=== PATIENT | female | born 1985 | race Caucasian/White ===

== ENCOUNTER 2016-06-14 10:02 | Emergency (ER) | payer MEDICAID ==
[~2016-06-14] VITALS: Ht 160 cm; Wt 75.7 kg
[~2016-06-14 10:02] MED LIST: CLARITHROMYCIN250 MG; COLACE100 MG PO; FLAGYL250 MG; OMEPRAZOLE DR20 M1
[2016-06-14 13:32] VITALS: BP 115/74
== END 2016-06-14 13:33 | disposition home or self-care (01) ==
LOC: ED 10:02
DX: M25.512 Pain in left shoulder (principal)

== ENCOUNTER 2016-07-09 15:50 | Emergency (ER) | payer MEDICAID ==
[2016-07-09 18:44] VITALS: BP 119/74
== END 2016-07-09 18:44 | disposition home or self-care (01) ==
LOC: ED 15:50
DX: R10.13 Epigastric pain (principal); R19.7 Diarrhea, unspecified
CPT/HCPCS: J1885; J2270; Q0162

== ENCOUNTER 2016-08-04 20:51 | Emergency (ER) | payer MEDICAID ==
[2016-08-04 23:07] LABS: BASOPHIL % 0.3 % (0-2); PLATELET COUNT 210 x10^3mcL (130-400); RED CELL DISTRIBUTION WIDTH 14.1 % (11.5-14.5)
[2016-08-04 23:22] LABS: CALCIUM 9.3 mg/dL (8.5-10.1); CARBON DIOXIDE 24.6 mmol/L (21-32); CHLORIDE SERUM 106 mmol/L (98-107); CREATININE SERUM 0.6 mg/dL (0.6-1.0); GFR1 > 60 mL/min; GLUCOSE SERUM 93 mg/dL (74-106); POTASSIUM SERUM 3.8 mmol/L (3.5-5.1); SODIUM SERUM 142 mmol/L (136-145)
[2016-08-04 23:38] LABS: ALBUMIN 3.6 g/dL (3.4-5.0); ALKALINE PHOSPHATASE 64 U/L (46-116); ALT/SGPT 23 U/L (14-59); AST/SGOT 16 U/L (15-37); BILIRUBIN TOTAL 0.2 mg/dL (0.20-1.00); TOTAL PROTEIN, SERUM 7.5 g/dL (6.4-8.2)
[2016-08-05 01:38] VITALS: BP 111/61
== END 2016-08-05 01:39 | disposition home or self-care (01) ==
LOC: ED 20:51
PROVIDERS: Emergency Medicine
DX: M79.651 Pain in right thigh (principal)
CPT/HCPCS: Q0092

== ENCOUNTER 2016-12-16 23:17 | Emergency (ER) | payer MEDICAID ==
[2016-12-17 00:25] LABS: microscopic required? NO
[2016-12-17 00:43] LABS: urine erythrocyte NEGATIVE (NEGATIVE)
[2016-12-17 00:53] LABS: BASOPHIL % 0.4 % (0-2); PLATELET COUNT 302 x10^3mcL (130-400); RED CELL DISTRIBUTION WIDTH 14.3 % (11.5-14.5)
[2016-12-17 01:22] LABS: CARBON DIOXIDE 27.9 mmol/L (21-32); CHLORIDE SERUM 103 mmol/L (98-107); CREATININE SERUM 0.5 mg/dL (0.6-1.0); GFR1 > 60 mL/min; GLUCOSE SERUM 102 mg/dL (74-106); POTASSIUM SERUM 3.8 mmol/L (3.5-5.1); SODIUM SERUM 137 mmol/L (136-145)
[2016-12-17 01:25] VITALS: BP 125/83
[2016-12-17 01:27] LABS: ALBUMIN 3.4 g/dL (3.4-5.0); ALKALINE PHOSPHATASE 70 U/L (46-116); ALT/SGPT 33 U/L (14-59); AST/SGOT 23 U/L (15-37); BILIRUBIN TOTAL 0.21 mg/dL (0.20-1.00); TOTAL PROTEIN, SERUM 7.8 g/dL (6.4-8.2)
== END 2016-12-17 01:25 | disposition home or self-care (01) ==
LOC: ED 23:17
PROVIDERS: Emergency Medicine
DX: M54.9 Dorsalgia, unspecified (principal); F50.89 Other specified eating disorder; D64.9 Anemia, unspecified; R10.9 Unspecified abdominal pain
CPT/HCPCS: 36415

== ENCOUNTER 2017-04-09 01:13 | Emergency (ER) | payer MEDICAID ==
[2017-04-09 04:00] LABS: CALCIUM 8.1 mg/dL (8.5-10.1); CHLORIDE SERUM 106 mmol/L (98-107); CREATININE SERUM 0.6 mg/dL (0.6-1.0); GFR1 > 60 mL/min; GLUCOSE SERUM 108 mg/dL (74-106); POTASSIUM SERUM 3.8 mmol/L (3.5-5.1); SODIUM SERUM 141 mmol/L (136-145)
[2017-04-09 04:01] LABS: BASOPHIL % 0.4 % (0-2); PLATELET COUNT 231 x10^3mcL (130-400)
[2017-04-09 04:02] LABS: RED CELL DISTRIBUTION WIDTH 16.5 % (11.5-14.5)
[2017-04-09 04:05] LABS: ALBUMIN 3.5 g/dL (3.4-5.0); ALKALINE PHOSPHATASE 56 U/L (46-116); ALT/SGPT 26 U/L (14-59); AST/SGOT 19 U/L (15-37); BILIRUBIN TOTAL 0.2 mg/dL (0.20-1.00); LIPASE 222 IU/L (73-393); TOTAL PROTEIN, SERUM 7.3 g/dL (6.4-8.2)
[2017-04-09 06:11] VITALS: BP 129/60
== END 2017-04-09 06:11 | disposition home or self-care (01) ==
LOC: ED 01:13
PROVIDERS: Emergency Medicine
DX: N20.0 Calculus of kidney (principal); K80.80 Other cholelithiasis without obstruction
CPT/HCPCS: J1170; J2405; J7030; Q0092

== ENCOUNTER 2017-12-07 09:41 | Emergency (ER) | payer MEDICAID ==
[~2017-12-07] VITALS: Ht 157.5 cm; Wt 82.1 kg
[2017-12-07 09:59] VITALS: Ht 157.5 cm; Wt 82.1 kg
[2017-12-07 10:49] LABS: BASOPHIL % 0.3 % (0-2); PLATELET COUNT 260 x10^3mcL (130-400)
[2017-12-07 10:54] LABS: microscopic required? YES; urine erythrocyte TRACE (NEGATIVE)
[2017-12-07 10:55] LABS: CALCIUM 8.8 mg/dL (8.5-10.1); CARBON DIOXIDE 24.1 mmol/L (21-32); CHLORIDE SERUM 105 mmol/L (98-107); CREATININE SERUM 0.5 mg/dL (0.6-1.0); GFR1 > 60 mL/min; GLUCOSE SERUM 95 mg/dL (74-106); POTASSIUM SERUM 3.8 mmol/L (3.5-5.1); SODIUM SERUM 140 mmol/L (136-145)
[2017-12-07 11:00] LABS: ALBUMIN 3.6 g/dL (3.4-5.0); ALKALINE PHOSPHATASE 62 U/L (46-116); ALT/SGPT 37 U/L (14-59); AMYLASE 49 U/L (25-115); AST/SGOT 21 U/L (15-37); LIPASE 176 IU/L (73-393); RED CELL DISTRIBUTION WIDTH 15.4 % (11.5-14.5)
[2017-12-07 11:04] LABS: TOTAL PROTEIN, SERUM 8.9 g/dL (6.4-8.2)
[2017-12-07 11:13] LABS: AMPHETAMINE QUAL UR NONE DETECTED (See below)
[2017-12-07 13:00] VITALS: BP 113/65
== END 2017-12-07 13:00 | disposition home or self-care (01) ==
LOC: ED 09:41
PROVIDERS: Emergency Medicine
DX: K21.9 Gastro-esophageal reflux disease without esophagitis (principal); R11.10 Vomiting, unspecified; Z87.11 Personal history of peptic ulcer disease
CPT/HCPCS: J1885; J2550; J3490; J7030; Q0162

== ENCOUNTER 2019-01-09 23:59 | Emergency (ER) | payer MEDICAID ==
[~2019-01-09] VITALS: Ht 154.9 cm; Wt 84.8 kg
[2019-01-10 00:06] VITALS: Ht 154.9 cm; Wt 84.8 kg
[2019-01-10 03:03] LABS: UA SPECIFIC GRAVITY <=1.005 (1.005-1.035); microscopic required? YES; urine erythrocyte 1+ (NEGATIVE)
[2019-01-10 03:52] VITALS: BP 106/74
== END 2019-01-10 02:25 | disposition home or self-care (01) ==
LOC: ED 23:59
PROVIDERS: Emergency Medicine
DX: J03.90 Acute tonsillitis, unspecified (principal); N39.0 Urinary tract infection, site not specified; Z98.890 Other specified postprocedural states
CPT/HCPCS: J1885

== ENCOUNTER 2019-08-16 18:03 | Emergency (ER) | payer MEDICAID, SELFPAY ==
[~2019-08-16] VITALS: Ht 152.4 cm; Wt 83.9 kg
[2019-08-16 18:22] VITALS: Ht 152.4 cm; Wt 83.9 kg
[2019-08-16 18:52] LABS: BASOPHIL % 0.6 % (0-2); PLATELET COUNT 197 x10^3mcL (130-400)
[2019-08-16 18:53] LABS: RED CELL DISTRIBUTION WIDTH 15.2 % (11.5-14.5)
[2019-08-16 19:08] LABS: CALCIUM 8.8 mg/dL (8.5-10.1); CARBON DIOXIDE 27.2 mmol/L (21-32); CHLORIDE SERUM 102 mmol/L (98-107); CREATININE SERUM 0.7 mg/dL (0.6-1.0); GFR1 > 60 mL/min; GLUCOSE SERUM 117 mg/dL (74-106); POTASSIUM SERUM 3.3 mmol/L (3.5-5.1); SODIUM SERUM 137 mmol/L (136-145)
[2019-08-16 19:13] LABS: ALBUMIN 3.7 g/dL (3.4-5.0); ALKALINE PHOSPHATASE 52 U/L (46-116); ALT/SGPT 34 U/L (14-59); AST/SGOT 24 U/L (15-37); BILIRUBIN TOTAL 0.3 mg/dL (0.20-1.00); TOTAL PROTEIN, SERUM 7.7 g/dL (6.4-8.2)
[2019-08-16 19:38] LABS: microscopic required? YES; urine erythrocyte TRACE (NEGATIVE)
[2019-08-16 20:59] VITALS: BP 123/73
== END 2019-08-16 20:59 | disposition home or self-care (01) ==
LOC: ED 18:03
PROVIDERS: Emergency Medicine
DX: Z20.828 Contact with and (suspected) exposure to other viral communicable diseases (principal)
CPT/HCPCS: 36600; 87804; J7030; Q0092; U0003-CS

== ENCOUNTER 2019-09-17 20:54 | Emergency (ER) | payer MEDICAID, SELFPAY ==
[~2019-09-17] VITALS: Ht 152.4 cm; Wt 75.3 kg
[2019-09-17 21:02] VITALS: Ht 152.4 cm; Wt 75.3 kg
[2019-09-18 00:34] LABS: BASOPHIL % 1.5 % (0-2); PLATELET COUNT 231 x10^3mcL (130-400); RED CELL DISTRIBUTION WIDTH 15.3 % (11.5-14.5)
[2019-09-18 00:37] LABS: CALCIUM 8.7 mg/dL (8.5-10.1); CARBON DIOXIDE 28.6 mmol/L (21-32); CHLORIDE SERUM 101 mmol/L (98-107); CREATININE SERUM 0.8 mg/dL (0.6-1.0); GFR1 > 60 mL/min; GLUCOSE SERUM 99 mg/dL (74-106); POTASSIUM SERUM 3.7 mmol/L (3.5-5.1); SODIUM SERUM 138 mmol/L (136-145)
[2019-09-18 00:41] LABS: ALKALINE PHOSPHATASE 54 U/L (46-116); ALT/SGPT 36 U/L (14-59); AST/SGOT 19 U/L (15-37); BILIRUBIN TOTAL 0.2 mg/dL (0.20-1.00); LIPASE 223 IU/L (73-393); TOTAL PROTEIN, SERUM 7.5 g/dL (6.4-8.2)
[2019-09-18 00:42] LABS: ALBUMIN 3.3 g/dL (3.4-5.0)
[2019-09-18 02:13] VITALS: BP 116/73
== END 2019-09-18 02:13 | disposition home or self-care (01) ==
LOC: ED 20:54
DX: K21.9 Gastro-esophageal reflux disease without esophagitis (principal)
CPT/HCPCS: 36415; Q0162

== ENCOUNTER 2019-09-26 22:04 | Emergency (ER) | payer MEDICAID ==
[~2019-09-26] VITALS: Ht 162.6 cm; Wt 83.0 kg
[2019-09-26 22:34] VITALS: Ht 162.6 cm; Wt 83.0 kg
[2019-09-27 02:15] VITALS: BP 109/73
== END 2019-09-27 03:10 | disposition home or self-care (01) ==
LOC: ED 22:04
DX: J02.9 Acute pharyngitis, unspecified (principal)
CPT/HCPCS: J1885; J7512

== ENCOUNTER 2019-10-01 21:25 | Emergency (ER) | payer MEDICAID ==
[~2019-10-01] VITALS: Ht 152.4 cm; Wt 63.5 kg
[2019-10-01 21:38] VITALS: Ht 152.4 cm; Wt 63.5 kg
[2019-10-02 00:26] LABS: BASOPHIL % 0.3 % (0-2); PLATELET COUNT 244 x10^3mcL (130-400)
[2019-10-02 00:34] LABS: CARBON DIOXIDE 29.7 mmol/L (21-32); CHLORIDE SERUM 105 mmol/L (98-107); CREATININE SERUM 0.7 mg/dL (0.6-1.0); GFR1 > 60 mL/min; GLUCOSE SERUM 96 mg/dL (74-106); POTASSIUM SERUM 3.8 mmol/L (3.5-5.1); SODIUM SERUM 142 mmol/L (136-145)
[2019-10-02 00:36] LABS: RED CELL DISTRIBUTION WIDTH 15.3 % (11.5-14.5)
[2019-10-02 00:39] LABS: ALBUMIN 3.8 g/dL (3.4-5.0); ALKALINE PHOSPHATASE 48 U/L (46-116); ALT/SGPT 56 U/L (14-59); AST/SGOT 33 U/L (15-37); BILIRUBIN TOTAL 0.4 mg/dL (0.20-1.00); TOTAL PROTEIN, SERUM 7.7 g/dL (6.4-8.2)
[2019-10-02 02:07] VITALS: BP 127/88
== END 2019-10-02 02:06 | disposition home or self-care (01) ==
LOC: ED 21:25
PROVIDERS: Emergency Medicine
DX: K27.9 Peptic ulcer, site unspecified, unspecified as acute or chronic, without hemorrhage or perforation (principal); R10.12 Left upper quadrant pain
CPT/HCPCS: Q0092; Q0162

== ENCOUNTER 2019-10-07 22:41 | Emergency (ER) | payer MEDICAID ==
[~2019-10-07] VITALS: Ht 157.5 cm; Wt 81.4 kg
[2019-10-07 22:48] VITALS: Ht 157.5 cm; Wt 81.4 kg
[2019-10-08 02:23] LABS: microscopic required? NO
[2019-10-08 02:55] LABS: CARBON DIOXIDE 31.4 mmol/L (21-32); CHLORIDE SERUM 104 mmol/L (98-107); CREATININE SERUM 0.6 mg/dL (0.6-1.0); GFR1 > 60 mL/min; GLUCOSE SERUM 103 mg/dL (74-106); POTASSIUM SERUM 3.5 mmol/L (3.5-5.1); SODIUM SERUM 142 mmol/L (136-145)
[2019-10-08 03:05] LABS: ALKALINE PHOSPHATASE 55 U/L (46-116); ALT/SGPT 56 U/L (14-59); AST/SGOT 33 U/L (15-37); BILIRUBIN TOTAL 0.25 mg/dL (0.20-1.00); LIPASE 188 IU/L (73-393); TOTAL PROTEIN, SERUM 8.1 g/dL (6.4-8.2)
[2019-10-08 03:23] LABS: BASOPHIL % 0.4 % (0-2); PLATELET COUNT 279 x10^3mcL (130-400)
[2019-10-08 03:26] LABS: UA SPECIFIC GRAVITY <=1.005 (1.005-1.035); urine erythrocyte NEGATIVE (NEGATIVE)
[2019-10-08 03:32] LABS: RED CELL DISTRIBUTION WIDTH 15.8 % (11.5-14.5)
[2019-10-08 05:54] VITALS: BP 128/68
== END 2019-10-08 05:54 | disposition home or self-care (01) ==
LOC: ED 22:41
PROVIDERS: Emergency Medicine
DX: K59.00 Constipation, unspecified (principal); R10.11 Right upper quadrant pain; R30.0 Dysuria

== ENCOUNTER 2019-11-13 18:48 | Emergency (ER) | payer MEDICAID ==
[~2019-11-13] VITALS: Ht 170.2 cm; Wt 77.1 kg
[2019-11-13 18:57] VITALS: Ht 170.2 cm; Wt 77.1 kg
[2019-11-13 21:11] LABS: BASOPHIL % 1.7 % (0-2); PLATELET COUNT 244 x10^3mcL (130-400)
[2019-11-13 21:12] LABS: RED CELL DISTRIBUTION WIDTH 15.9 % (11.5-14.5)
[2019-11-13 21:27] LABS: CALCIUM 9.5 mg/dL (8.5-10.1); CARBON DIOXIDE 30.1 mmol/L (21-32); CHLORIDE SERUM 103 mmol/L (98-107); CREATININE SERUM 0.6 mg/dL (0.6-1.0); GFR1 > 60 mL/min; GLUCOSE SERUM 89 mg/dL (74-106); POTASSIUM SERUM 3.4 mmol/L (3.5-5.1); SODIUM SERUM 139 mmol/L (136-145)
[2019-11-13 21:31] LABS: ALBUMIN 3.8 g/dL (3.4-5.0); ALKALINE PHOSPHATASE 47 U/L (46-116); ALT/SGPT 33 U/L (14-59); AST/SGOT 21 U/L (15-37); BILIRUBIN TOTAL 0.3 mg/dL (0.20-1.00); LIPASE 145 IU/L (73-393); TOTAL PROTEIN, SERUM 7.8 g/dL (6.4-8.2)
[2019-11-13 22:50] VITALS: BP 124/83
== END 2019-11-13 22:50 | disposition home or self-care (01) ==
LOC: ED 18:48
PROVIDERS: Emergency Medicine
DX: N20.0 Calculus of kidney (principal)
CPT/HCPCS: J1885